=== PATIENT | female | born 1940 | race Two or more races ===

== ENCOUNTER 2022-02-23 19:53 | Inpatient (IN) | payer OTHER ==
[~2022-02-23] VITALS: Ht 152.4 cm; Wt 49.9 kg
[2022-02-23] MEDS ORDERED: LIPITOR20 MG (20:21)
[2022-02-23] MEDS ORDERED: ASA81 MG (20:23)
[2022-02-23] MEDS ORDERED: MECLIZINE 12.5 MG (20:23)
[2022-02-23] MEDS ORDERED: MULTI VITAMIN (20:24)
[2022-02-23] MEDS ORDERED: ZESTRIL40 M1 (20:24)
[2022-02-23] MEDS ORDERED: METFORMIN HCL500 M3 (20:25)
--- NOTE | 2022-02-23 20:25 | NUR ---
PTE SE RECIBE POR DIZZINESS REFIERE PTE.
--- NOTE | 2022-02-23 21:08 | NUR ---
PTE FEMENINA ALERTA Y ORIENTADA X3 ES ESFERAS ES EVALUADA POR . SE ORIENTA SOBRE ORDENES DE [place] REFIERE COMPRENDER. SE EXTRAEN MUESTRAS DE LABORATORIOS, BAJO MEDIDAS ASEPTICAS. SE ADMINISTRA MEDICAMENTO BAJO MEDIDAS ASEPTICAS. SE NOTIFICA A RADIOLOGIA PARA CT.
--- NOTE | 2022-02-23 22:37 | NUR ---
SE RECIBE FEMINA ALERTA Y ORIENTADA X 3 ESFERAS DEL AREA DE OBSERVACION. SE UBICA A PTE EN CAMA #18 DE CHEST PAIN, SE COLOCA EN MONITOR CARDIACO, OXIMETRIA DE PULSO Y CANULA NASAL A 3LTS. CANALIZA EN BRAZO DERECHO AREA RAMIRO DE EDEMA Y ERITEMA. SE ADMINISTRA IV'S 0.45 BAJANDO A 100ML/HR Y MEDICAMENTOS CALI ORDEN MEDICA. SE COLECTA MUESTRAS DE LABORATORIOS BAJO MEDIDAS ASEPTICAS. SE NOTIFICA YOLANDA X. SE NOTIFICA A QUE PTE PRESENTA B/P:85/60MMHG. SE REHAN A PTE EN CAMA CON BARANDAS ELEVADAS POR SEGURIDAD. SE EDUCA SOBRE TX MEDICO LA CUAL REFIERE COMPRENDER.
--- NOTE | 2022-02-23 22:44 | NUR ---
INDICA PONER EN HOLD EL TRIDIL.
--- NOTE | 2022-02-23 23:00 | NUR ---
PATIENT IS RECIEVED ALERT, ORIENTED X3 AND IN STABLE CONDITIONS. PATIENT IS IN BED WITH RAILINGS UP AND CONNECTED TO TELEMETRY AND OXIMETRY. PATIENT HAS NASL CANULA AND IVF 0.45% NACL AT 100 ML/HR WITH PATENT IV LINES AND CLEAN VENIPUNCTURE. PATIENT HAS PENDING CONSULT WITH INTERNAL MEDICINE.
== END 2022-02-25 09:45 | disposition left against medical advice (07) | DRG 282 ==
LOC: ER 19:53 → SEC-K 23:39 → MEDJ 02-24 22:46
PROVIDERS: ADMIT Internal Medicine; ATTEND Internal Medicine
PROC: BW28ZZZ Computerized Tomography (CT Scan) of Head (ICD-10-PCS; principal; 2022-02-23)
PROC: B345ZZZ Ultrasonography of Bilateral Common Carotid Arteries (ICD-10-PCS; 2022-02-23)
PROC: B24BZZZ Ultrasonography of Heart with Aorta (ICD-10-PCS; 2022-02-23)
PROC: 4A12X4Z Monitoring of Cardiac Electrical Activity, External Approach (ICD-10-PCS; 2022-02-25)
DX: I21.4 Non-ST elevation (NSTEMI) myocardial infarction (principal); E11.9 Type 2 diabetes mellitus without complications; Z79.4 Long term (current) use of insulin; E78.49 Other hyperlipidemia; I10 Essential (primary) hypertension; Z20.822 Contact with and (suspected) exposure to COVID-19